=== PATIENT | female | born 1985 | race Caucasian/White ===

== ENCOUNTER 2019-03-27 15:32 | Emergency (ER) | payer MEDICAID ==
[~2019-03-27] VITALS: Ht 170.2 cm; Wt 84.1 kg
[2019-03-27 15:47] VITALS: BP 136/74
[2019-03-27] MEDS ORDERED: VIG0.5OS EACHEYE (16:21)
== END 2019-03-27 16:26 | disposition home or self-care (01) ==
LOC: ER 15:32
DX: B99.8 Other infectious disease (principal); H10.89 Other conjunctivitis; Z88.6 Allergy status to analgesic agent; Z79.2 Long term (current) use of antibiotics
CPT/HCPCS: 99283